=== PATIENT | female | born 1970 | race Caucasian/White ===

== ENCOUNTER 2016-09-18 23:30 | Emergency (ER) | payer SELFPAY ==
[~2016-09-18] VITALS: Ht 170.2 cm; Wt 59.0 kg
[2016-09-19 03:19] LABS: HEMATOCRIT. 39.4 % (36.0-48.0); HEMOGLOBIN. 13.4 g/dL (12.0-16.0); MEAN CORPUSCULAR HEMOGLOBIN 31.9 pg (28.0-32.0); MEAN CORPUSCULAR VOLUME 93.6 fL (81.0-99.0); MEAN PLATELET VOLUME 6.7 fl (7.4-10.4); PLATELET 329 x1000/uL (130-400); RED CELL DISTRIBUTION WIDTH 13.3 % (11.6-14.6); WHITE BLOOD COUNT 6.3 x1000/uL (4.5-11.0)
[2016-09-19 03:28] LABS: ACETAMINOPHEN < 2 ug/mL (10-30); ALANINE AMINOTRANSFERASE 30 IU/L (13-61); ALBUMIN 3.1 g/dL (3.4-5.0); ANION GAP 13; CALCIUM 8.4 mg/dL (8.5-10.1); CARBON DIOXIDE 26 mEq/L (21-32); CHLORIDE 106 mEq/L (98-107); ETHANOL BLOOD 168 mg/dL; INDEX HEMOLYSI 1 (1-3); INDEX ICTERIC 1 (1-4); INDEX LIPEMIC 1 (1-3); UREA NITROGEN BLOOD 8 mg/dL (7-21); eGFR > 60 mL/min (>60)
[2016-09-19] MEDS ORDERED: LIDOCAINE HCL 1% 20ML VIAL (Pyxis) INJ MC ONE (06:00)
[2016-09-19] MEDS ORDERED: CEFTRIAXONE SODIUM 1 G/VIAL IM ONE (06:00)
[2016-09-19 06:22] LABS: HCG SCREEN NEGATIVE
[2016-09-19 07:11] LABS: PLATELET ESTIMATE NORMAL
[2016-09-19 07:36] VITALS: BP 123/75
== END 2016-09-19 09:13 | disposition home or self-care (01) ==
LOC: ER 23:33
DX: F10.129 Alcohol abuse with intoxication, unspecified (principal); L03.115 Cellulitis of right lower limb; Y90.6 Blood alcohol level of 120-199 mg/100 ml
CPT/HCPCS: 36415; 72170; 73552; 73562; 73590; 80053; 80307; 80329; 84703; 85025; 96372; 99285; G0482; J0696; J3490; Z7610

== ENCOUNTER 2021-10-21 19:26 | Emergency (ER) | payer MEDICAID ==
[~2021-10-21] VITALS: Ht 160 cm; Wt 50.0 kg
[2021-10-21 19:34] VITALS: BP 132/62
== END 2021-10-21 23:00 | disposition left against medical advice (07) ==
LOC: ER 19:26
DX: Z53.21 Procedure and treatment not carried out due to patient leaving prior to being seen by health care provider (principal)

== ENCOUNTER 2021-10-22 03:41 | Emergency (ER) | payer MEDICAID ==
[~2021-10-22] VITALS: Ht 167.6 cm; Wt 65.0 kg
[2021-10-22 03:58] VITALS: BP 117/69
== END 2021-10-22 07:54 | disposition left against medical advice (07) ==
LOC: ER 03:41
DX: R68.84 Jaw pain (principal)
CPT/HCPCS: 99283

== ENCOUNTER → 2022-03-21 | Emergency (ER) | payer MEDICAID ==
[~2022-03-21] VITALS: Ht 167.6 cm; Wt 59.0 kg
[2022-03-21 08:31] VITALS: BP 128/82
== END ==
LOC: ER 08:25
DX: Z53.21 Procedure and treatment not carried out due to patient leaving prior to being seen by health care provider (principal)
CPT/HCPCS: 99283

== ENCOUNTER 2023-01-09 05:17 | Emergency (ER) | payer MEDICAID ==
[~2023-01-09] VITALS: Ht 160 cm; Wt 61.0 kg
[2023-01-09] MEDS ORDERED: KETOROLAC 30MG/ML VIAL IV STA (05:33)
[2023-01-09 05:34] VITALS: BP 144/100; PULSE 84; RESP 18; TEMP 98.2; O2SAT 99
== END 2023-01-09 06:36 | disposition left against medical advice (07) ==
LOC: ER 05:17
DX: R10.9 Unspecified abdominal pain (principal); I25.2 Old myocardial infarction
CPT/HCPCS: 99281; 99283